=== PATIENT | female | born 1950 | race Caucasian/White ===

== ENCOUNTER 2017-06-02 13:54 | Emergency (ER) | payer BC ==
[2017-06-02 14:07] VITALS: BP 142/69
--- NOTE | 2017-06-02 14:54 | UC ---
Complaint Female HPI - HPI Summary HPI Summary: 2 day history of urinary frequency and urgency, increased today. Has a hx of interstitial cystitis, so waited symptoms out a bit, but now convinced has UTI. Hx of UTI's about 2x per year, with past evaluation by urology. Typically takes cipro and has never had a problem with it, discussed recent advisory about use Normal renal function. - History Of Current Complaint Chief Complaint: UCGU Stated Complaint: URINARY COMPLAINT Time Seen by Provider: 06/02/17 14:43 Hx Obtained From: Patient Hx Last Menstrual Period: n/a ?: No Onset/Duration: Sudden Onset, Lasting Days - 2 Timing: Constant Severity Initially: Mild Severity Currently: Moderate Character: Burning Aggravating Factor(s): Urination Alleviating Factor(s): Nothing Associated Signs And Symptoms: Positive: Negative - Risk Factors Ectopic Risk Factor: Negative Ovarian Torsion Risk Factor: Negative - Allergies/Home Medications Allergies/Adverse Reactions: Allergies Allergy/AdvReac Type Severity Reaction Status Date / Time Sulfa Antibiotics Allergy Unknown Unknown Verified 06/02/17 14:02 Reaction Details PMH/Surg Hx/FS Hx/Imm Hx - Additional Past Medical History Additional PMH: fibromyalgia auto-immune mixed connective tissue disease. Hearing loss Endocrine History: Hypothyroidism - Surgical History Surgical History: Yes Surgery Procedure, Year, and Place: fusion cervical spine 2005. d & c with ablation 2005. tonsillectomy - Family History Known Family History: Positive: Cardiac Disease - mother of CHF, rheumatic heart disease., Hypertension, Diabetes - paternal uncle and 2 siblings, father - Social History Occupation: Employed Full-time - travel professional Lives: With Family Alcohol Use: Rare Substance Use Type: None Smoking Status (MU): Never Smoked Tobacco Review of Systems Constitutional: Negative Skin: Negative Eyes: Negative ENT: Negative Respiratory: Negative Cardiovascular: Palpitations - controlled with metoprolol, Other Gastrointestinal: Negative Genitourinary: Dysuria, Frequency, Urgency Motor: Other - often achey, no hx of tendon disorder. Neurovascular: Negative Musculoskeletal: Negative Neurological: Negative Psychological: Negative All Other Systems Reviewed And Are Negative: Yes Physical Exam Triage Information Reviewed: Yes Appearance: Well-Appearing, Obese Vital Signs: Initial Vital Signs Temp 99.0 F 06/02/17 14:03 Pulse 77 06/02/17 14:03 Resp 16 06/02/17 14:03 BP 142/69 06/02/17 14:03 Pulse Ox 98 06/02/17 14:03 Eye Exam: Normal ENT: Positive: Pharynx normal, TMs normal Neck: Positive: Nontender, No Lymphadenopathy Respiratory: Positive: Lungs clear, Normal breath sounds Cardiovascular: Positive: RRR, No Murmur Abdomen Description: Positive: Nontender, No Organomegaly, Soft. Negative: CVA Tenderness (R), CVA Tenderness (L) Neurological Exam: Normal Psychological Exam: Normal Skin Exam: Normal Diagnostics - Laboratory Diagnostic Studies Completed/Ordered: UA with WBC and RBC Complaint Female Dx - Course Course Of Treatment: cipro for UTI treatment. - Differential Dx/Diagnosis Differential Diagnosis/HQI/PQRI: Renal Colic, Urinary Tract Infection Provider Diagnoses: UTI Discharge - Discharge Plan Condition: Stable Disposition: HOME Prescriptions: Ciprofloxacin TAB* [Cipro 250 MG Tab*] 250 mg PO BID #10 tab Patient Education Materials: Urinary Tract Infection in Women (ED) Additional Instructions: Please take the full course of cipro; you will be notified in 2 to 3 days if there is a need for change of antibiotics based on the culture report. Ensure a high intake of water.
== END 2017-06-02 14:59 | disposition home or self-care (01) ==
LOC: UCCORT 13:54
DX: N39.0 Urinary tract infection, site not specified (principal); Z87.440 Personal history of urinary (tract) infections; M79.7 Fibromyalgia; M35.1 Other overlap syndromes; H91.90 Unspecified hearing loss, unspecified ear; E03.9 Hypothyroidism, unspecified; E66.9 Obesity, unspecified; Z88.2 Allergy status to sulfonamides
CPT/HCPCS: 81003; 87077; 87086; 87186; 99212; G0463